=== PATIENT | male | born 1935 | race Caucasian/White ===

== ENCOUNTER → 2016-05-02 | Outpatient (CLI) | payer MEDICARE, OTHER | LOC: NC 09:51 | PROVIDERS: ATTEND Family Medicine | DX: J44.9 Chronic obstructive pulmonary disease, unspecified (principal); I25.10 Atherosclerotic heart disease of native coronary artery without angina pectoris; I11.9 Hypertensive heart disease without heart failure ==

== ENCOUNTER → 2016-11-06 | Outpatient (CLI) | payer MEDICARE, OTHER | LOC: NC 08:44 | PROVIDERS: ATTEND Family Medicine | DX: J44.9 Chronic obstructive pulmonary disease, unspecified (principal); I25.10 Atherosclerotic heart disease of native coronary artery without angina pectoris; I11.9 Hypertensive heart disease without heart failure ==

== ENCOUNTER → 2016-11-08 | Outpatient (CLI) | payer MEDICARE | END | disposition home or self-care (01) | LOC: NC 12:18 | PROVIDERS: ATTEND Family Medicine | DX: R30.0 Dysuria (principal) ==

== ENCOUNTER → 2017-05-30 | Outpatient (CLI) | payer MEDICARE, OTHER | LOC: NC 09:56 | PROVIDERS: ATTEND Family Medicine | DX: J44.9 Chronic obstructive pulmonary disease, unspecified (principal); I11.9 Hypertensive heart disease without heart failure; N40.1 Benign prostatic hyperplasia with lower urinary tract symptoms ==

== ENCOUNTER → 2017-06-06 | Outpatient (CLI) | payer MEDICARE, OTHER ==
--- NOTE | 2017-06-06 11:10 | US ---
History: Aortic aneurysm. Retroperitoneal sonography, ultrasound aorta: Directed sonography of the aorta is performed with images demonstrating the aorta from the thoracoabdominal junction through the bifurcation. The distal abdominal aorta is focally dilated with maximal transverse diameter 4.4 cm. No acute complication is suggested. The left common iliac artery is 16 mm and right common iliac artery 27 mm. Atheromatous changes are present throughout the aorta. No lymphadenopathy. The IVC is grossly unremarkable. The kidneys are not imaged. IMPRESSION: 1. Distal abdominal aortic aneurysm of 4.4 cm. No evidence for acute complication. 2. 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 Ectasia on the left measuring 16 mm. Electronically signed by: Zuly Lopez MD 06/06/2017 11:10 AM [employer] Workstation: [id number]
== END ==
LOC: US 08:31
PROVIDERS: ATTEND Family Medicine
DX: I71.4 Abdominal aortic aneurysm, without rupture (principal); I72.3 Aneurysm of iliac artery; K21.9 Gastro-esophageal reflux disease without esophagitis; I25.10 Atherosclerotic heart disease of native coronary artery without angina pectoris; I73.9 Peripheral vascular disease, unspecified

== ENCOUNTER → 2017-12-01 | Outpatient (CLI) | payer MEDICARE, OTHER | LOC: GOCC 19:52 | PROVIDERS: ATTEND Family Medicine | DX: N39.0 Urinary tract infection, site not specified (principal); R31.9 Hematuria, unspecified ==